=== PATIENT | female | born 1975 | race Caucasian/White ===

== ENCOUNTER → 2017-03-02 | Outpatient (CLI) | payer BC ==
[2015-05-17 11:24] VITALS: BP 113/71
--- NOTE | 2017-03-03 11:20 | MG ---
HISTORY: SCREENING Comparison: Multiple mammograms dating back to December 18, 2014. FINDINGS: Bilateral CC and MLO projections of the right and left breast were obtained. Scattered fibroglandul ar tissue is seen to be present. Stable appearing asymmetric breast tissue within the outer left br east. No significant architectural distortion, mass or clustered microcalcifications can be observed to suggest malignancy. No skin thickening or nipple retraction is appreciated. No pathological l ymphadenopathy can be identified. IMPRESSION: NO RADIOGRAPHIC EVIDENCE OF MALIGNANCY. ACR CATEGORY: 2 - benign findings. FOLLOW-UP EXAM 1 YEAR. Diagnostic CAD was utilized and reviewed. * 0 (ZERO) - ASSESSMENT INCOMPLETE; ADDITIONAL IMAGING IS NEEDED. * 1/1 (ONE) - NEGATIVE. * 2/II (TWO) - BENIGN FINDINGS. * 3/III (THREE) - PROBABLY BENIGN FINDING; SHORT INTERVAL FOLLOW-UP SUGGESTED. * 4/IV (FOUR) - SUSPICIOUS ABNORMALITY; BIOPSY SHOULD BE CONSIDERED. * 5/V - HIGHLY SUSPICIOUS OF MALIGNANCY; BIOPSY SHOULD BE PERFORMED. A NEGATIVE X-RAY REPORT SHOULD NOT DELAY BIOPSY IF A DOMINANT OR CLINICALLY SUSPICIOUS MASS IS PRESENT; 4 TO 8 PERCENT OF CANCERS ARE NOT IDENTIFIED BY X-RAY. A NEG ATIVE REPORT MAY REINFORCE THE CLINICAL IMPRESSION. ADENOSIS AND DENSE BREASTS MAY OBSCURE AN UNDER LYING NEOPLASM. Reported By:
== END ==
LOC: RAD 10:43
PROVIDERS: ATTEND Obstetrics & Gynecology
DX: Z12.31 Encounter for screening mammogram for malignant neoplasm of breast (principal)
CPT/HCPCS: 77067

== ENCOUNTER 2017-11-27 15:23 | Emergency (ER) | payer BC ==
[2017-11-27 15:27] VITALS: BP 114/58; BMI 29.8
--- NOTE | 2017-11-27 17:01 | DR.EXTPAIN ---
HPI - Time seen Time seen: 17:18 - PCP Primary Care Physician: ELIE - Complaint/Symptoms Chief Complaint Doctor Comments: Patient states that her right arm hurts intermittently w/o a history of trauma. The pain is stinging, 10/10 radiating down the extremity Chief Complaint:: PT. STATES SHE WOKE UP MONDAY MORNING WITH RIGHT ARM PAIN THINKING IT WAS A PINCHED NERVE AND THAT THE PAIN WOULD WORK ITSELF OUT. PT. STATES THE PAIN HAS WORSENED AND SHE HAS A DULL PAIN AT ALL TIMES AND SOMETIMES SHE HAS A SHARP PAIN. - Source History Provided: Patient - Mode of arrival Mode of Arrival: Ambulatory - Timing Onset of Chief Complaint: 11/24/17 PMH - PMH Past Medical History: Yes Past Medical History: Anxiety Past Surgical History: Yes Surgical History: Hysterectomy - Family History History of Family Medical Conditions: Yes Family Medical History: Diabetes Mellitus, Cancer, [place], Coronary Artery Disease, Hypertension - Social History Does patient currently use any type of tobacco product: No Have you used tobacco products in the last 12 months: No Type of Tobacco Use: None Does any household member use tobacco: No Alcohol Use: Occasionally Do you use any recreational Drugs:: No Lives With: Spouse Lives Where: Home - infectious screening In the last 2 months have you had wt loss of >10#?: NO Have you had fever, night sweats or hemotysis?: No Have you traveled outside the country in the last 6 months?: No Isolation: Standard ROS - Review of Systems Eyes: No Symptoms Reported ENTM: No Symptoms Reported Respiratoy: No Symptoms Reported Cardiovascular: No Symptoms Reported Gastrointestinal/Abdominal: No Symptoms Reported Genitourinary: No Symptoms Reported Neurological: No Symptoms Reported Musculoskeletal: No Symptoms Reported Integumentary: No Symptoms Reported Hematologic/Lymphatic: No Symptoms Reported Endocrine: No Symptoms Reported Psychiatric: No Symptoms Reported All Other Systems: Reviewed and Negative Unable to Obtain Due To: Altered mental status PE - Vital Signs Vitals: Temperature 98.0 F Pulse Rate 72 Respiratory Rate 17 Blood Pressure 114/58 O2 Sat by Pulse Oximetry 99 - General Limitations: No Limitations General Appearance: Alert, In No Apparent Distress - Head Head Exam: Normal Inspection, Atraumatic - Eyes Eye exam: Normal Appearance, PERRL, EOMI - ENT ENT Exam: Normal Exam - Neck Neck Exam: Normal Inspection, Full ROM - Chest Chest Inspection: Normal Inspection - Respiratory Respiratory Exam: Normal Lung Sounds Bilat Respiratory Exam: Bilateral Clear to Auscultation - Cardiovascular Cardiovascular Exam: Regular Rate, Normal Rhythm - Abdominal Exam Abdominal Exam: Normal Inspection Abdominal Tenderness: negative: RUQ, RLQ, LUQ, LLQ, Epigastrium, Suprapubic, Diffuse, Mild, Moderate, Severe, Other - Extremities Extremities Exam: Normal Inspection, Tenderness (pain right arm with radiation down the extremity) - Upper Extremities Shoulder Exam: Normal Inspection Arm Exam: Normal Inspection Elbow Exam: Normal Inspection, Full ROM Forearm Exam: Normal Inspection, Full ROM Hand Exam: Normal Inspection Neuromotor Exam: Normal Exam Neurosensory Exam: Normal Exam Hand Tendon Exam: Flexor Digitorium Profundus (Location) Upper Ext. Vascular Exam: Capillary Refill - Lower Extremities Hip/Pelvis Exam: Normal Inspection, Full ROM Upper Leg Exam: Normal Inspection Knee Exam: Normal Inspection, Full ROM Lower Leg Exam: Normal Inspection, Full ROM Ankle Exam: Normal Inspection, Full ROM Foot/Toe Exam: Normal Inspection Neurovascular/Tendon Exam: Normal Capillary Refill Gait Exam: Observed and Normal - Back Back Exam: Normal Inspection, Full ROM - Neurological Neurological Exam: Alert, Oriented X3, CN II-XII Intact - Psychiatric Psychiatric Exam: Normal Affect - Skin Skin Exam: Warm, Dry, Intact ROR - XRAY XRAY Interpreted by: Radiologist (Cervical Spine: There is straightening of the cervical spine with loss of the usual cervical lordosis. This may reflect underlying muscle spasm or patient positioning. No evidence of vertebral body offset however. There is mild narrowing of the C5-6 disc space. The other cervical disc spaces are maintained. No acute bony abnormality is seen on this study. Impression: Mild degenerative disc disease at the C5-C6 level. Remainder of the exam is unremarkable however.) - Diagnosis Discharge Problem: Mild degenerative disc disease C5-6, Right arm pain - Discharge Plan Condition: Stable - Follow ups/Referrals Follow ups/Referrals: Mahin Barboza [Primary Care Provider] - 3 days - Instructions
[2017-11-27] MEDS ORDERED: TORADOL 60 MG VIAL IM ONE (17:20)
--- NOTE | 2017-11-27 17:46 | RAD ---
Exam: Cervical spine AP and lateral views History: 42-year-old female with neck and right arm pain Comparison: None Findings: There is straightening of the cervical spine with loss of the usual cervical lordosis. This may refle ct underlying muscle spasm or patient positioning. No evidence of vertebral body offset however. Ther e is mild narrowing of the C5-6 disc space. The other cervical disc spaces are maintained. No acute b zenaida abnormality is seen on this study. Impression: Mild degenerative disc disease at the C5-6 level. Remainder the exam is unremarkable however. Reported By:
[2017-11-27] MEDS ORDERED: TORADOL 60 MG VIAL ONE (17:51)
== END 2017-11-27 18:09 | disposition home or self-care (01) ==
LOC: ER 15:33
DX: M50.322 Other cervical disc degeneration at C5-C6 level (principal); M79.601 Pain in right arm
CPT/HCPCS: 72040; 96372; 99282; J1885